=== PATIENT | female | born 1950 | race Caucasian/White ===

== ENCOUNTER 2019-03-19 15:48 | Emergency (ER) | payer BC ==
[~2019-03-19] VITALS: Ht 170.2 cm; Wt 64.1 kg
[2019-03-19 16:02] VITALS: BP 124/76
[2019-03-19] MEDS ORDERED: BISO1TAB31 PO (16:03)
[2019-03-19] MEDS ORDERED: [UNRECOGNIZED DRUG - CODE] IV (16:03)
== END 2019-03-19 16:27 | disposition home or self-care (01) ==
LOC: EMS 15:51
DX: R18.0 Malignant ascites (principal); I10 Essential (primary) hypertension; Z85.43 Personal history of malignant neoplasm of ovary; Z79.899 Other long term (current) drug therapy; Z88.0 Allergy status to penicillin; Z88.2 Allergy status to sulfonamides; Z92.21 Personal history of antineoplastic chemotherapy